=== PATIENT | female | born 1960 | race Caucasian/White ===

== ENCOUNTER 2020-09-17 10:13 | Outpatient (CLI) | payer MEDICARE, SELFPAY ==
--- NOTE | ~2020-09-17 | MM_ITS ---
EXAMINATION: MM screening [facility] BI w macie HISTORY: Screening TECHNIQUE: Craniocaudal and mediolateral oblique 3-D tomosynthesis images were obtained and synthetic 2-D images were generated. CAD analysis was submitted and interpreted. COMPARISON: 08/11/2016 BREAST PARENCHYMAL COMPOSITION: The breasts are heterogeneously dense, which may obscure small masses . FINDINGS: Benign-appearing bilateral breast calcifications are stable. The right breast is stable wit hout evidence for malignancy. There is a new focal asymmetry in the subareolar location of the left b reast on MLO view. IMPRESSION: 1. New left breast asymmetry. 2. Additional mammographic views and possible breast ultrasound are recommended. BI-RADS Category 0: Incomplete: Needs additional imaging evaluation. Reviewed, dictated and finalized at location A. GLE SHEARING MACHINE OPERATOR IMPRESSION: 1. New left breast asymmetry. 2. Additional mammographic views and possible breast ultrasound are recommended . BI-RADS Category 0: Incomplete: Needs additional imaging evaluation.
== END 2020-09-17 10:14 | disposition home or self-care (01) ==
LOC: ANHIMG 10:17
PROVIDERS: PCP Nurse Practitioner Adult Health; Visit Provider Nurse Practitioner Adult Health
DX: Z12.31 Encounter for screening mammogram for malignant neoplasm of breast (principal); R92.8 Other abnormal and inconclusive findings on diagnostic imaging of breast
CPT/HCPCS: 77063; 77067

== ENCOUNTER 2020-10-04 12:54 | Outpatient (CLI) | payer MEDICARE, SELFPAY ==
--- NOTE | ~2020-10-04 | MMUS_ITS ---
EXAMINATION: MM diagnostic mammo unilat LT, US breast LT limited HISTORY: Possible left breast mass on screening mammogram TECHNIQUE: Additional 3-D tomosynthesis images of the left breast were performed and synthetic 2-D im ages were generated. CAD analysis was submitted and interpreted. High resolution limited left breast ultrasound was performed. COMPARISON: 09/17/2020, 09/14/2019, 08/30/2018, 08/27/2017 FINDINGS: MAMMOGRAPHIC FINDINGS: No persistent mass is identified with spot compression of the left breast. There is no suspicious giuseppe cification or architectural distortion ULTRASOUND: There is no evidence of focal abnormal solid or cystic lesion in the vicinity of the mammographic fin ding in question. IMPRESSION: 1. No mammographic or sonographic evidence of malignancy. 2. Recommend routine screening mammography in one year. BI-RADS Category 1: Negative Reviewed, dictated and finalized at location A. IDER NETWORK MANAGER IMPRESSION: 1. No mammographic or sonographic evidence of malignancy. 2. Recommend routine screening mammography in one year. BI-RADS Category 1: Negative
== END 2020-10-04 12:55 | disposition home or self-care (01) ==
LOC: ANHIMG 12:59
PROVIDERS: PCP Nurse Practitioner Adult Health; Visit Provider Nurse Practitioner Adult Health
DX: R92.8 Other abnormal and inconclusive findings on diagnostic imaging of breast (principal)
CPT/HCPCS: 76642; 77065

== ENCOUNTER 2020-10-15 13:29 | Outpatient (CLI) | payer MEDICARE, SELFPAY ==
--- NOTE | 2020-10-15 | ECHO_ITS ---
Patient Info Name: Karyn Ulrich Age: 59 years : 1960 Gender: Female Ht: 62 in Wt: 151 lbs BSA: 1.75 m2 HR: 95 bpm BP: 130 / 86 mmHg Heart Rhythm: Sinus Rhythm Technical Quality: Good Exam Date: 10/15/2020 2:09 PM Exam Location: [facility] Patient Status: Outpatient Admit Date: 10/15/2020 Staff Ordering Physician: Gilberto, Alejandra RODRIGUEZ [employer] Service Team Member: Matty Gamble RDCS Attending Provider: GennaroAlejandra NP Exam Type: CA echo doppler color flow Study Info Indications I27.2 - Other secondary pulmonary hypertension Complete two-dimensional, color flow and Doppler transthoracic echocardiogram is performed. History/Risk Factors Pulmonary hypertension. Summary 1. Complete two-dimensional, color flow and Doppler transthoracic echocardiogram is performed. 2. Left ventricular systolic function is normal, estimated at 55-60%. 3. There is mild asymmetric septal increased left ventricular wall thickness. 4. The left ventricular diastolic function is grade I diastolic dysfunction. 5. There is no aortic valve stenosis. 6. There is trace tricuspid valve regurgitation. 7. Unable to estimate PA systolic pressure due to poor spectral resolution of tricuspid regurgitant jet velocity. 8. There is trace mitral valve regurgitation. Left Ventricle Left ventricular chamber dimension is normal. Left ventricular systolic function is normal, estimated at 55-60%. There is mild asymmetric septal increased left ventricular wall thickness. The left ventricular diastolic function is grade I diastolic dysfunction. Right Ventricle Right ventricular chamber dimension is normal. Right ventricular systolic function is normal. Left Atria Left atrial chamber dimension is not well visualized. Right Atria Right atrial chamber dimension is not well visualized. Aortic Valve The aortic valve is not well visualized. There is no aortic valve stenosis. There is no aortic valve regurgitation. Pulmonic Valve The pulmonic valve is not well visualized. There is mild pulmonic regurgitation. Mitral Valve The mitral valve has thickened leaflets. There is trace mitral valve regurgitation. The mitral valve annulus is mildly calcified. Tricuspid Valve The tricuspid valve leaflets are not well visualized. There is trace tricuspid valve regurgitation. Unable to estimate PA systolic pressure due to poor spectral resolution of tricuspid regurgitant jet velocity. Pericardium/Pleural The pericardium appears epicardial fat pad. There is no pericardial effusion. Inferior Vena Cava Normal inferior vena cava with no collapse upon inspiration consistent with elevated right atrial pressure, 10 mmHg. Aorta The aortic root size at the sinus of Valsalva is normal. There is mild aortic atherosclerosis. Left Ventricular Outflow Tract Name Value Normal LVOT 2D LVOT Diameter 2.0 cm LVOT Doppler LVOT Peak Gradient 2 mmHg LVOT Mean Gradient 1 mmHg LVOT VTI 13 cm LVOT VTI/AV VTI Ratio 0.8
== END 2020-10-15 13:30 | disposition home or self-care (01) ==
LOC: ANHCARD 13:30
PROVIDERS: PCP Nurse Practitioner Adult Health; Visit Provider Nurse Practitioner Adult Health
DX: I27.20 Pulmonary hypertension, unspecified (principal)
CPT/HCPCS: 93306

== ENCOUNTER 2022-02-27 14:55 | Outpatient (CLI) | payer MEDICARE, SELFPAY ==
--- NOTE | ~2022-02-27 | MM_ITS ---
EXAMINATION: MM screening mikki BI w macie HISTORY: Screening TECHNIQUE: Craniocaudal and mediolateral oblique 3-D tomosynthesis images were obtained and synthetic 2-D images were generated. CAD analysis was submitted and interpreted. COMPARISON: No prior mammogram is available for comparison at this institution. BREAST PARENCHYMAL COMPOSITION: The breasts are extremely dense, which lowers the sensitivity of mamm ography FINDINGS: There is no evidence of suspicious mass, calcification, or architectural distortion to sugg est malignancy in either breast. There has been no suspicious interval change. IMPRESSION: 1. No mammographic evidence of malignancy. 2. Recommend routine screening mammography in one year. BI-RADS Category 1: Negative Reviewed, dictated and finalized at location A.
== END 2022-02-27 14:56 | disposition home or self-care (01) ==
LOC: ANHIMG 14:57
PROVIDERS: PCP Nurse Practitioner Adult Health; Visit Provider Nurse Practitioner Adult Health
DX: Z12.31 Encounter for screening mammogram for malignant neoplasm of breast (principal)
CPT/HCPCS: 77063; 77067

== ENCOUNTER 2023-03-05 14:48 | Outpatient (CLI) | payer MEDICARE, SELFPAY ==
--- NOTE | ~2023-03-05 | MM_ITS ---
EXAMINATION: MM screening [facility] BI w macie HISTORY: Screening mammogram TECHNIQUE: Craniocaudal and mediolateral oblique 3-D tomosynthesis images were obtained and synthetic 2-D images were generated. CAD analysis was submitted and interpreted. COMPARISON: 02/27/2022, 10/04/2020, 09/17/2020, 09/27/2019 BREAST PARENCHYMAL COMPOSITION: The breasts are extremely dense, which lowers the sensitivity of mamm ography. FINDINGS: No suspicious mass, calcification, or architectural distortion are identified in either thor ast to suggest malignancy. There has been no suspicious interval change. IMPRESSION: 1. No mammographic evidence of malignancy. 2. Recommend routine screening mammography in one year. BI-RADS Category 1: Negative Reviewed, dictated and finalized at location A.
== END 2023-03-05 14:49 | disposition home or self-care (01) ==
LOC: ANHIMG 14:49
PROVIDERS: PCP Nurse Practitioner Adult Health; Visit Provider Family Medicine
DX: Z12.31 Encounter for screening mammogram for malignant neoplasm of breast (principal)
CPT/HCPCS: 77063; 77067

== ENCOUNTER 2024-04-04 07:31 | Outpatient (CLI) | payer MEDICARE, SELFPAY ==
--- NOTE | ~2024-04-04 | MM_ITS ---
EXAMINATION: MM screening mikki BI w macie HISTORY: Screening mammogram TECHNIQUE: Craniocaudal and mediolateral oblique 3-D tomosynthesis images were obtained and synthetic 2-D images were generated. CAD analysis was submitted and interpreted. COMPARISON: 03/05/2023, 02/27/2022 BREAST PARENCHYMAL COMPOSITION:Dense: The breasts are extremely dense, which lowers the sensitivity o f mammography. FINDINGS: Bilateral benign calcifications are present. No suspicious mass, calcification, or architec tural distortion are identified in either breast to suggest malignancy. There has been no suspicious interval change. IMPRESSION: No mammographic evidence of malignancy. Recommend routine screening mammography in one year. BI-RADS Category 2: Benign finding(s). Reviewed, dictated and finalized at location .
== END 2024-04-04 07:32 | disposition home or self-care (01) ==
LOC: ANHIMG 07:34
PROVIDERS: PCP Family Medicine; Visit Provider Family Medicine
DX: Z12.31 Encounter for screening mammogram for malignant neoplasm of breast (principal)
CPT/HCPCS: 77063; 77067

== ENCOUNTER 2024-12-23 14:15 | Outpatient (CLI) | payer MEDICARE, SELFPAY ==
--- NOTE | ~2024-12-23 | CT_ITS ---
EXAMINATION:CT lung screening DATE: 12/23/2024 14:38 INDICATION: Nicotine dependence, cigarettes, uncomplicated. 42 pack year history. TECHNIQUE: Computed tomography (CT) of the chest was performed without intravenous contrast. Automate d exposure control and iterative reconstruction technique were employed. The dose-length product (DLP ) was 76.55 mGy-cm. COMPARISON: None. FINDINGS: There is mild emphysema. There is widespread peripheral septal thickening in the lungs. The re is a 3 mm nodule in right upper lobe. No pleural effusion. The heart size is normal. There are cor onary artery calcifications. No pericardial effusion. There are gallstones in the gallbladder, which is normal in size. There is mild thoracic spondylosis. IMPRESSION: 1. Lung-RADS category 2: Benign appearance or behavior. Continue annual screening with noncontrast lo w-dose chest CT in 12 months. Reviewed, dictated and finalized at location A. STICKER IMPRESSION: 1. Lung-RADS category 2: Benign appearance or behavior. Continue annual screeni ng with noncontrast low-dose chest CT in 12 months.
--- OUTSIDE RECORDS SUMMARY | 2024-12-23 14:23 | XMS_ITS | Data Portability ---
Author Organization [place] [facility] [employer], Main Office Address [address] [place] [address] Care Team Providers Care Bus Inspector Name Role Phone EZEQUIEL RICHMOND Primary Care Provider Assessment Encounter Date Assessment Date Assessment LastModified by Organization Details LastModified Time 12/14/2024 12/14/2024 64 yo F with - WELL ADULT VISIT - PRE-DM - HLD - DEPRESSION - ANXIETY - OSTEOPENIA - SMOKER HbA1c: 5.9(11/02/23) D/w pt about her findings, recent labs & imagines and further plan of care. Will do routine labs. All meds verified with pt. Meds as directed. Diet and exercise explained. Fall risk precautions explained. Encouraged pt to cut down and quit smoking. Educated pt about alarming symptoms to monitor at home. Cont f/u with Ophtho as per schedule. Offered to refer to counsellor; but pt declined. HM: WWE - Long time ago. Normal in the past. Pt declined. Mammo - 04/04/24, normal. Ordered. DEXA - 12/12/22, osteopenia ++. Colonoscopy - 03/06, h/o polyps ++. Cont f/u with GI as per schedule. Flu - 09/08. Tdap - 06/16/22. Pneumo - 2019, 12/14/24. Shingrix - Pt got it. F/u in 2-3 weeks. Annual labs in 12/11. [email or web address] Not available 12/14/2024 15:49:45 Plan of Treatment Reminders Order Date Submit Date Provider Last Modified By Organization Details Last Modified Time Details Appointments Follow Up 15 2024 01:00P M Ezequiel Richmond MD Not available Not available Not available Lab HbA1c (hemoglob in A1c), blood [address] [facility], [address] [place], [address], 08/04/2023 08:10:30 BMP, serum or plasma [address] [facility], [address] [place], [address], 08/04/2023 08:10:30 TSH, serum, reflex free T4 [address] [facility], [address] [place], [address], 08/04/2023 08:10:30 lipid panel, serum [address] [facility], [address] [place], [address], 08/04/2023 08:10:30 hepatic function panel, serum [address] [facility], [address] [place], [address], 08/04/2023 08:10:30 HbA1c (hemoglob in A1c), blood [address] [employer] [facility], [address], [place], [address], 12/21/2024 04:34:09 CMP, serum or plasma 2024 025 [employer] [facility], [address], [place], [address], 12/21/2024 04:34:09 urinalysi s complete, reflex culture [address] [facility], [address], [place], [address], 12/21/2024 04:34:10 CBC w/ auto diff 2024 025 [employer] [facility], [address], [place], [address], 12/21/2024 04:34:10 lipid panel, serum 2024 025 [employer] [facility], [address], [place], [address], 12/21/2024 04:34:10 TSH, serum or plasma 2024 025 [employer] [facility], [address], [place], [address], 12/21/2024 04:34:11 vitamin D, 25-hydrox y, total, serum 2024 025 [employer] [facility], [address], [place], [address], 12/21/2024 04:34:11 Referral None recorded. Procedures None recorded. Surgeries None recorded. Imaging MAMMO, screening , bilateral - *Please call pt to schedule* [email or web address] [facility], [address], [address] [address], [place], [address], 04/04/2024 14:49:07 MAMMO, screening , bilateral [address], [address], [place], [address], 12/14/2024 15:39:54 LDCT, chest, for lung cancer screening - Please call patient to schedule. 2024 025 [facility], [address], [place], [address], 12/14/2024 17:00:56 Medication Orders metformin ER 500 mg tablet,ex tended release 24 hr 2023 024 [facility], [address] [place], [place], [id number], 12/28/2023 15:05:12 citalopra m 40 mg tablet 2023 024 [facility] #74860, [address] [place], [place], [id number], 12/28/2023 15:04:51 atorvasta tin 10 mg tablet 2023 024 [facility] #46133, [address] [place], [place], [id number], 12/28/2023 15:05:05 Calcium 600 + D(3) 600 mg-10 mcg (400 unit) tablet 2023 [facility] #22304, [address] [place], [place], [id number], 12/28/2023 15:07:49 bupropion HCl XL 150 mg 24 hr tablet, extended release 2023 [facility] #37209, [address] [place], [place], [id number], 12/28/2023 15:05:05 metformin ER 500 mg tablet,ex tended release 24 hr 2023 024 [facility] #56633, [address] [place], [place], [id number], 05/11/2024 14:16:55 citalopra m 40 mg tablet 2023 024 [facility] #81826, [address] [place], [place], [id number], 05/11/2024 14:16:53 atorvasta tin 10 mg tablet 2023 024 [facility] #[id number] [place], [id number], 05/11/2024 14:17:04 Calcium 600 + D(3) 600 mg-10 mcg (400 unit) tablet 2023 [facility] #52463, [address] [place], [place], [id number], 05/11/2024 14:16:53 nicotine 21 mg/24 hr daily transderm al patch 2023 [facility] #77249, [address] [place], [place], [id number], 05/11/2024 14:16:54 bupropion HCl XL 150 mg 24 hr tablet, extended release 2023 [facility] #35755, [address] [place], [place], [id number], 05/11/2024 14:16:54 metformin ER 500 mg tablet,ex tended release 24 hr 2023 [facility] #40694, [address] [place], [place], [id number], 08/30/2024 11:37:43 citalopra m 40 mg tablet 2023 [facility] #11534, [address] [place], [place], [id number], 08/30/2024 11:37:39 atorvasta tin 10 mg tablet 2023 [facility] #59708, [address] [place], [place], [id number], 08/30/2024 11:37:42 Calcium 600 + D(3) 600 mg-10 mcg (400 unit) tablet 2023 [facility] #49381, [address] [place], [place], [id number], 08/30/2024 11:37:44 nicotine 21 mg/24 hr daily transderm al patch 2023 [facility] #71240, [address] [place], [place], [id number], 08/30/2024 11:37:44 varenicli ne tartrate 0.5 mg tablet 2023 024 [facility] #54892, [address] [place], [place], [id number], 08/30/2024 11:37:45 bupropion HCl XL 150 mg 24 hr tablet, extended release 2023 024 [facility] #74778, [address] [place], [place], [id number], 08/30/2024 11:37:45 bupropion HCl XL 150 mg 24 hr tablet, extended release 2024 025 [facility] #80764, [address] [place], [place], [id number], 12/14/2024 15:27:53 nicotine 21 mg/24 hr daily transderm al patch 2024 025 [facility] #[id number] [place], [place], [id number], 12/14/2024 15:47:50 Patient TargetsNo targets recorded. Patient Instructions Encounter Date Encounter Id Patient Instructions Last Modified By Organization Details Last Modified Time 06/30/2023 [id number] Fu in 6 mo for anxiety/depressio n, lipid, dm, smoker. [email or web address] Not available 06/30/2023 10:31:58 Reason for Referral None Reported. Results Created Date Observation Date Name Description Value Unit Range Abnormal Flag Note LastModifiedBy Organization Detail LastModifiedTime 06/26/20 23 06/26/2023 BASIC METAB OLIC PANEL sodium 135 mmol/ L 137-14 5 low Not Available [facility] (Lab) [address] [place], [address], 06/26/2023 12:11:31 06/26/20 23 06/26/2023 BASIC METAB OLIC PANEL potassium 4.5 mmol/ L 3.5-5. 1 Not Available [facility] (Lab) [address] [place], [address], 06/26/2023 12:11:31 06/26/20 23 06/26/2023 BASIC METAB OLIC PANEL chloride 100 mmol/ L 98-107 Not Available [facility] (Lab) [address], [address], 06/26/2023 12:11:31 06/26/20 23 06/26/2023 BASIC METAB OLIC PANEL carbon dioxide 31 mmol/ L 22-30 high Not Available [facility] (Lab) [address] [place], [address], 06/26/2023 12:11:31 06/26/20 23 06/26/2023 BASIC METAB OLIC PANEL anion gap 8.5 mmol/ L 14-22 low Not Available [facility] (Lab) [address] [place], [address], 06/26/2023 12:11:31 06/26/20 23 06/26/2023 BASIC METAB OLIC PANEL glucose 100 mg/dL 70-99 high Not Available [facility] (Lab) [address] [place], [address], 06/26/2023 12:11:31 06/26/20 23 06/26/2023 BASIC METAB OLIC PANEL BUN 13 mg/dL 8-19 Not Available [facility] (Lab) [address] [place], [address], 06/26/2023 12:11:31 06/26/20 23 06/26/2023 BASIC METAB OLIC PANEL creatinine 0.69 mg/dL 0.66-1 .25 Not Available [facility] (Lab) [address] [place], [address], 06/26/2023 12:11:31 06/26/2006/26/2023 BASIC METAB OLIC PANEL GFR >60 Refer ence Range : Ewing ge GFR Healt hy Adult : >60 mL/mi n/1.7 3 m2 Chron ic Kidne y Disea se: 15-60 mL/mi n/1.7 3 m2 Kidne y Failu re: <15/m L/min /1.73 m2 www.n iddk. nih.g ov The MDRD study equat ion has not been valid ated in child nena <18 years of age; pregn ant women ; the elder ly >85 years of age; or in some racia l or ethni c subgr oups, such as Hispa nics. Outsi de the valid ated raymon eters , estim ated GFR is less accur ate, requi ring clini giuseppe judgm ent on a case- by-ca se basis . Clini giuseppe inter preta tion for other races and ages must be made by the clini nava. The MDRD study equat ion has not been valid ated for the evalu ation of serum creat inine relat ed to nutri jada l statu s or medic ation usage . For perso ns <18 years of age, a pedia tric GFR calcu lator is avail able on the [facility] websi te: https :[email or web address] [email or web address] wilhelm/pr marthaess ional s/kdo qi/gf r_cal culat or Not Available [facility] (Lab) [address] [place], [address], 06/26/2023 12:11:31 06/26/2006/26/2023 BASIC METAB OLIC PANEL calcium 8.8 mg/dL 8.4-10 .2 Not Available [facility] (Lab) [address], [address], 06/26/2023 12:11:31 06/26/20 23 06/26/2023 LIPID PANEL cholesterol 150 mg/dL 140-19 9 NIH BERTHA NSUS RECOM MENDA TION FOR KOBE STERO L: ADULT CHILD LOW RISK: <200 <170 BORDE RLINE : <200- 239 ----- HIGH RISK: >240 >200 Not Available [facility] (Lab) [address] [place], [address], 06/26/2023 12:11:34 06/26/20 23 06/26/2023 LIPID PANEL triglyceride s 49 mg/dL 0-150 NIH BERTHA NSUS REPOR T RECOM MENDA TION FOR TRIGL YCERI SEVERIANO: ADULT CHILD LOW RISK: <150 ----- BODER LINE: 150-1 99 ----- HIGH RISK: >200 ----- Not Available [facility] (Lab) [address] [place], [address], 06/26/2023 12:11:34 06/26/20 23 06/26/2023 LIPID PANEL HDL cholesterol 93 mg/dL 40- Not Available [facility] (Lab) [address] [place], [address], 06/26/2023 12:11:34 06/26/20 23 06/26/2023 LIPID PANEL LDL cholesterol, calculated 47 mg/dL 0-130 NIH BERTHA NSUS REPOR T RECOM MENDA TIONS FOR LDL: ADULT CHILD LOW RISK <130 <110 (OPTI MAL LDL) <100 ----- BORDE RLINE : 130-1 59 ----- HIGH RISK: >160 >130 A TRIGL YCERI DE RESUL T >400 INVAL IDATE S THE CALCU LATIO N FOR LDL FRACT IONAT ION - THE LDL RESUL T WILL NOT BE REPOR EUGENE. Not Available [facility] (Lab) [address] [place], [address], 06/26/2023 12:11:34 06/26/20 23 06/26/2023 HEPAT IC/LI CEE PANEL alkaline phosphatase 68 U/L 38-126 Not Available [facility] (Lab) [address] [facility] [place], [address], 06/26/2023 12:11:37 06/26/20 23 06/26/2023 HEPAT IC/LI CEE PANEL alanine aminotransfe rase 15 U/L 0-35 Not Available [facility] (Lab) [address] [place], [address], 06/26/2023 12:11:37 06/26/20 23 06/26/2023 HEPAT IC/LI CEE PANEL aspartate aminotransfe rase 17 U/L 15-37 Not Available [facility] (Lab) [address] [facility], [address], 06/26/2023 12:11:37 06/26/20 23 06/26/2023 HEPAT IC/LI CEE PANEL bilirubin, total 0.30 mg/dL 0.20-1 .30 Not Available [facility] (Lab) [address] [place], [address], 06/26/2023 12:11:37 06/26/20 23 06/26/2023 HEPAT IC/LI CEE PANEL bilirubin, conjugated (direct) 0.00 mg/dL 0.00-0 .30 Not Available [facility] (Lab) [address] [place], [address], 06/26/2023 12:11:37 06/26/20 23 06/26/2023 HEPAT IC/LI CEE PANEL biliurubin,u ncong. (indirect) 0.30 mg/dL 0.00-1 .1 Not Available [facility] (Lab) [address] [place], [address], 06/26/2023 12:11:37 06/26/20 23 06/26/2023 HEPAT IC/LI CEE PANEL total protein 6.7 g/dL 6.3-8. 2 Not Available [facility] (Lab) [address] [place], [address], 06/26/2023 12:11:37 06/26/20 23 06/26/2023 HEPAT IC/LI CEE PANEL albumin 3.9 g/dL 3.0-4. 4 Not Available [facility] (Lab) [address] [place], [address], 06/26/2023 12:11:37 06/26/20 23 06/26/2023 HEPAT IC/LI CEE PANEL globulin 2.8 g/dL 2.6-4. 2 Not Available [facility] (Lab) [address] [place], [address], 06/26/2023 12:11:37 06/26/20 23 06/26/2023 HEPAT IC/LI CEE PANEL A/G ratio 1.4 ratio 1.0-2. 0 Not Available [facility] (Lab) [address] [place], [address], 06/26/2023 12:11:37 06/26/20 23 06/26/2023 HEMOG LOBIN A1C HA1C 6.2 % 4.0-6. 0 high Diabe elaine Scree luis Crite sharon: <5.7% Consi stent with absen ce of diabe elaine 5.7-6 .4% Consi stent with incre ased risk for diabe elaine (pred iabet es) >OR=6 .5% Consi stent with diabe elaine REFER ENCE: Diabe elaine Care 2016, 39(Giang ppl.1 ):s13 -s22 Not Available [facility] (Lab) [address] [place], [address], 06/26/2023 16:15:26 11/02/20 23 11/02/2023 LIPID PANEL cholesterol 167 mg/dL 140-19 9 NIH BERTHA NSUS RECOM MENDA TION FOR KOBE STERO L: ADULT CHILD LOW RISK: <200 <170 BORDE RLINE : <200- 239 ----- HIGH RISK: >240 >200 Not Available [facility] (Lab) [address] [place], [address], 11/02/2023 11:51:50 11/02/20 23 11/02/2023 LIPID PANEL triglyceride s 102 mg/dL 0-150 NIH BERTHA NSUS REPOR T RECOM MENDA TION FOR TRIGL YCERI SEVERIANO: ADULT CHILD LOW RISK: <150 ----- BODER LINE: 150-1 99 ----- HIGH RISK: >200 ----- Not Available [facility] (Lab) [address] [place], [address], 11/02/2023 11:51:50 11/02/20 23 11/02/2023 LIPID PANEL HDL cholesterol 84 mg/dL 40- Not Available [facility] (Lab) [address] [place], [address], 11/02/2023 11:51:50 11/02/20 23 11/02/2023 LIPID PANEL LDL cholesterol, calculated 63 mg/dL 0-130 NIH BERTHA NSUS REPOR T RECOM MENDA TIONS FOR LDL: ADULT CHILD LOW RISK <130 <110 (OPTI MAL LDL) <100 ----- BORDE RLINE : 130-1 59 ----- HIGH RISK: >160 >130 A TRIGL YCERI DE RESUL T >400 INVAL IDATE S THE CALCU LATIO N FOR LDL FRACT IONAT ION - THE LDL RESUL T WILL NOT BE REPOR EUGENE. Not Available [facility] (Lab) [address] [place], [address], 11/02/2023 11:51:50 11/02/20 23 11/02/2023 HEPAT IC/LI CEE PANEL alkaline phosphatase 78 U/L 38-126 Not Available [facility] (Lab) [address] [place], [address], 11/02/2023 11:51:56 11/02/20 23 11/02/2023 HEPAT IC/LI CEE PANEL alanine aminotransfe rase 14 U/L 0-35 Not Available [facility] (Lab) [address] [place], [address], 11/02/2023 11:51:56 11/02/20 23 11/02/2023 HEPAT IC/LI CEE PANEL aspartate aminotransfe rase 17 U/L 15-37 Not Available [facility] (Lab) [address] [place], [address], 11/02/2023 11:51:56 11/02/20 23 11/02/2023 HEPAT IC/LI CEE PANEL bilirubin, total 0.40 mg/dL 0.20-1 .30 Not Available [facility] (Lab) [address] [place], [address], 11/02/2023 11:51:56 11/02/20 23 11/02/2023 HEPAT IC/LI CEE PANEL bilirubin, conjugated (direct) 0.00 mg/dL 0.00-0 .30 Not Available [facility] (Lab) [address] [place], [address], 11/02/2023 11:51:56 11/02/20 23 11/02/2023 HEPAT IC/LI CEE PANEL biliurubin,u ncong. (indirect) 0.20 mg/dL 0.00-1 .1 Not Available [facility] (Lab) [address] [place], [address], 11/02/2023 11:51:56 11/02/20 23 11/02/2023 HEPAT IC/LI CEE PANEL total protein 7.3 g/dL 6.3-8. 2 Not Available [facility] (Lab) [address] [place], [address], 11/02/2023 11:51:56 11/02/20 23 11/02/2023 HEPAT IC/LI CEE PANEL albumin 4.0 g/dL 3.0-4. 4 Not Available [facility] (Lab) [address] [place], [address], 11/02/2023 11:51:56 11/02/20 23 11/02/2023 HEPAT IC/LI CEE PANEL globulin 3.3 g/dL 2.6-4. 2 Not Available [facility] (Lab) [address] [place], [address], 11/02/2023 11:51:56 11/02/20 23 11/02/2023 HEPAT IC/LI CEE PANEL A/G ratio 1.2 ratio 1.0-2. 0 Not Available [facility] (Lab) [address] [place], [address], 11/02/2023 11:51:56 11/02/20 23 11/02/2023 BASIC METAB OLIC PANEL sodium 136 mmol/ L 137-14 5 low Not Available [facility] (Lab) [address] [place], [address], 11/02/2023 11:52:02 11/02/20 23 11/02/2023 BASIC METAB OLIC PANEL potassium 4.3 mmol/ L 3.5-5. 1 Not Available [facility] (Lab) [address] [place], [address], 11/02/2023 11:52:02 11/02/20 23 11/02/2023 BASIC METAB OLIC PANEL chloride 101 mmol/ L 98-107 Not Available [facility] (Lab) [address] [place], [address], 11/02/2023 11:52:02 11/02/20 23 11/02/2023 BASIC METAB OLIC PANEL carbon dioxide 28 mmol/ L 22-30 Not Available [facility] (Lab) [address] [place], [address], 11/02/2023 11:52:02 11/02/20 23 11/02/2023 BASIC METAB OLIC PANEL anion gap 11.3 mmol/ L 14-22 low Not Available [facility] (Lab) [address] [place], [address], 11/02/2023 11:52:02 11/02/20 23 11/02/2023 BASIC METAB OLIC PANEL glucose 114 mg/dL 70-99 high Not Available [facility] (Lab) [address] [place], [address], 11/02/2023 11:52:02 11/02/20 23 11/02/2023 BASIC METAB OLIC PANEL BUN 11 mg/dL 8-19 Not Available [facility] (Lab) [address] [place], [address], 11/02/2023 11:52:02 11/02/20 23 11/02/2023 BASIC METAB OLIC PANEL creatinine 0.63 mg/dL 0.66-1 .25 low Not Available [facility] (Lab) [address] [place], [address], 11/02/2023 11:52:02 11/02/20 23 11/02/2023 BASIC METAB OLIC PANEL GFR >60 Refer ence Range : Ewing ge GFR Healt hy Adult : >60 mL/mi n/1.7 3 m2 Chron ic Kidne y Disea se: 15-60 mL/mi n/1.7 3 m2 Kidne y Failu re: <15/m L/min /1.73 m2 www.n iddk. nih.g ov The MDRD study equat ion has not been valid ated in child nena <18 years of age; pregn ant women ; the elder ly >85 years of age; or in some racia l or ethni c subgr oups, such as Hispa nics. Outsi de the valid ated raymon eters , estim ated GFR is less accur ate, requi ring clini giuseppe judgm ent on a case- by-ca se basis . Clini giuseppe inter preta tion for other races and ages must be made by the clini nava. The MDRD study equat ion has not been valid ated for the evalu ation of serum creat inine relat ed to nutri jada l statu s or medic ation usage . For perso ns <18 years of age, a pedia tric GFR calcu lator is avail able on the [facility] websi te: https :[email or web address] [email or web address] wilhelm/payal ofess ional s/kdo qi/gf r_cal culat or Not Available [facility] (Lab) [address] [place], [address], 11/02/2023 11:52:02 11/02/20 23 11/02/2023 BASIC METAB OLIC PANEL calcium 8.9 mg/dL 8.4-10 .2 Not Available [facility] (Lab) [address] [place], [address], 11/02/2023 11:52:02 11/02/20 23 11/02/2023 TSH W/REF RENU FT4 TSH with reflex free T4 2.560 uIU/m L 0.465- 4.680 Not Available [facility] (Lab) [address] [place], [address], 11/02/2023 12:01:22 11/02/20 23 11/02/2023 HEMOG LOBIN A1C HA1C 5.9 % 4.0-6. 0 Diabe elaine Emersone luis Crite sharon: <5.7% Consi stent with absen ce of diabe elaine 5.7-6 .4% Consi stent with incre ased risk for diabe elaine (pred iabet es) >OR=6 .5% Consi stent with diabe elaine REFER ENCE: Diabe elaine Care 2016, 39(Giang ppl.1 ):s13 -s22 Not Available [facility] (Lab) [address] [place], [address], 11/02/2023 20:38:32 04/04/20 24 04/04/2024 MAMMO , reynaldo smith, bilat eral No observ ation record ed. [email or web address] [place] [id number], [place], [address], 05/11/2024 14:10:29 04/04/20 24 04/04/2024 MAMMO , scree luis, bilat eral No observ ation record ed. [email or web address] [facility] [address], [place], [address], 05/11/2024 14:10:29 Result Notes None recorded. Problems Name Problem SNOMED Code Status Onset Date Resolution Date Notes Provider Name and Address Organization Details Recorded Time Alcohol abuse 86179424 Active Not Available [facility] 3 06:14:16 Depressiv e disorder 93446226 Active Not Available [facility] 3 06:14:16 Hyperlipi demia 79972517 Active Not Available [facility] 3 06:14:16 Essential hypertens ion 06051679 Active Not Available [facility] 3 06:14:16 Pulmonary hypertens ion 28186678 Active 2019 Not Available [facility] 3 06:14:16 Sleep apnea 00931174 Completed Not Available [facility] 3 06:14:16 History of traumatic brain injury 81047128917 100 Active 2021 Not Available [facility] 3 06:14:16 Anxiety disorder 182630578 Active 2023 Ezequiel Richmond MD [address], [place], [address] , [employer] [facility] [employer] 4 15:01:37 Prediabet es 064014316 Active 2023 Ezequiel Richmond MD [address], [place], [address] , [employer] [facility] [employer] [facility] 4 15:04:08 Osteopeni a 096570801 Active 2023 Ezequiel Richmond MD [address], [place], [address] , [employer] [facility] [employer] [facility] 4 15:07:26 Cigarette smoker 92722949 Active 2023 Ezequiel Richmond MD [address], [place], [address] , [facility] 15:14:51 Problem Notes None recorded. Procedures Surgical History Date Name Laterality Status Provider Name and Address Organization Details Recorded Time 12/14/19 25 Smoking Cessation completed Ezequiel Richmond MD [address], [place], [address], [facility] 12/14/2024 14:58:03 08/30/20 24 Smoking Cessation completed Ezequiel Richmond MD [address], [place], [address], [facility] 08/30/2024 11:40:30 05/11/20 24 Smoking Cessation completed Ezequiel Richmond MD [address], [place], [address], [facility] [employer] 05/11/2024 14:16:10 12/28/19 24 Smoking Cessation completed Ezequiel Richmond MD [address], [place], [address], [facility] [place] [facility] [employer] [facility] 12/28/2023 15:12:21 03/05/20 23 Most Recent Mammogram completed Lavinia Roass RN [facility] [employer] [facility] 06/30/2023 10:12:47 12/12/19 23 Most Recent Bone Density completed Not Available [facility] 01/14/2023 06:08:17 11/16/19 16 Date of Last Colonoscopy completed Not Available [facility] 01/14/2023 06:08:17 Brain Surgery completed Not Available [facility] 01/14/2023 06:08:21 Colonoscopy completed Not Available [facility] 01/14/2023 06:08:21 Imaging Results Imaging Date Name Status LastModified by [facility] Details LastModified Time 04/04/2024 MAMMO, screening, bilateral completed [address] [place] [address], [address], 05/11/2024 14:10:29 04/04/2024 MAMMO, screening, bilateral completed [address], [address], 05/11/2024 14:10:29 Procedure Notes None recorded. Medical Equipment None Reported. Allergies No known drug allergies Medications Name Sig Start Date Stop Date Status Note LastModified by Organization Details LastModified Time metformin 500 mg tablet TAKE 1 TABLET BY MOUTH TWICE DAILY active Not Available Not Available No t Available bupropion HCl SR 150 mg tablet,12 hr sustained- release Take 1 tablet twice a day by oral route for 90 days. active Not Available Not Available No t Available citalopram 40 mg tablet TAKE 1 TABLET BY MOUTH EVERY DAY active Not Available Not Available No t Available atorvastat in 10 mg tablet TAKE 1 TABLET BY MOUTH EVERY NIGHT active Not Available Not Available No t Available azithromyc in 250 mg tablet TAKE 2 TABLETS (500 MG) BY ORAL ROUTE ONCE DAILY FOR 1 DAY THEN 1 TABLET (250 MG) BY ORAL ROUTE ONCE DAILY FOR 4 DAYS active Not Available Not Available No t Available ofloxacin 0.3 % eye drops INSTILL 1 DROP INTO AFFECTED EYE(S) BY OPHTHALM IC ROUTE 4 TIMES PER DAY FOR 5 DAYS active Not Available Not Available No t Available amoxicilli n 500 mg tablet TAKE 1 TABLET BY MOUTH THREE TIMES DAILY UNTIL GONE 08/30 completed Not Available Not Available Not Available alprazolam 0.5 mg tablet TAKE 1 TABLET BY MOUTH TWICE DAILY NEEDED 06/30 completed Not Available Not Available Not Available VitrinepixTouch Ultra Test strips USE TO TEST BLOOD SUGAR ONCE DAILY 12/28 completed Not Available Not Available Not Available polymyxin B sulfate 10,000 unit-trime thoprim 1 mg/mL eye drops INSTILL 2 DROPS IN RIGHT EYE QID FOR 7 DAYS 12/20 completed Not Available Not Available Not Available nicotine 21 mg/24 hr daily transderma l patch Apply 1 patch every day by transder mal route as directed for 30 days. 2024 active Not Available Not Available Not Avai lable methylpred nisolone 4 mg tablets in a dose pack FOLLOW PACKAGE DIRECTIO NS 05/11 completed Not Available Not Available Not Available metformin ER 500 mg tablet,ext ended release 24 hr TAKE 1 TABLET BY MOUTH TWICE DAILY DIRECTED active Not Available Not Available No t Available bupropion HCl SR 200 mg tablet,12 hr sustained- release TAKE 1 TABLET BY MOUTH TWICE DAILY 12/28 completed Not Available Not Available Not Available bupropion HCl XL 150 mg 24 hr tablet, extended release Take 1 tablet every day by oral route in the evening for 90 days. 2024 active Not Available Not Available Not Avai janile OneTouch Ultra2 Meter kit FPD 12/28 completed Not Available Not Available Not Available vareniclin e tartrate 0.5 mg tablet TAKE 1 TABLET BY MOUTH TWICE DAILY DIRECTED active Not Available Not Available No t Available calcium 600 mg (as carbonate) -vitamin D3 10 mcg (400 unit) tablet TAKE 1 TABLET BY MOUTH TWICE DAILY active Not Available Not Available No t Available Chantix Starting Month Box 0.5 mg (11)-1 mg (42) tablets in dose pack Use as directed active not taking yet Not Available Not Available Not Available OneTouch Delica Lancets 30 gauge U TO TEST BLOOD SUGAR TID UTD 01/08 completed Not Available Not Available Not Available Fluvirin 3440-6477 45 mcg (15 mcg x 3)/0.5 mL intramuscu lar suspension active Not Available Not Available N ot Available Fluvirin 8840-8734 45 mcg (15 mcg x 3)/0.5 mL intramuscu lar suspension active Not Available Not Available N ot Available Fluvirin 2349-0399 45 mcg (15 mcg x 3)/0.5 mL intramuscu lar suspension active Not Available Not Available N ot Available Fluvirin 4119-6073 45 mcg (15 mcg x 3)/0.5 mL intramuscu lar suspension ADM 0.5ML IM UTD active Not Available Not Available No t Available Fluvirin 6585-9921 45 mcg (15 mcg x 3)/0.5 mL intramuscu lar suspension active Not Available Not Available N ot Available OneTouch Ultra Blue Test Strip USE TO TEST ONCE DAILY 12/28 completed Not Available Not Available Not Available Fluzone Quad 2017-(PF ) 60 mcg(15 mcgx4)/0.5 mL intramuscu lar syringe ADM 0.5ML IM UTD 12/22 completed Not Available Not Available Not Available OneTouch Ultra2 Meter 12/28 completed Not Available Not Available Not Available OneTouch Delica Plus Lancet 33 gauge USE TO TEST BLOOD SUGAR ONCE DAILY 12/28 completed Not Available Not Available Not Available Afluria Qd 2018- (36 mos up)(PF)60 mcg (15 mcg x4)/0.5 mL IM syringe active Not Available Not Available N ot Available Fluzone Quad (PF) 60 mcg (15 mcg x 4)/0.5 mL IM syringe 01/08 completed Not Available Not Available Not Available Vitals Date Recorded Body height Body mass index (BMI) Body weight Body temperature Heart rate Respiratory rate Oxygen saturation Oxygen saturation in Arterial blood by Pulse oximetry Pain severity - 0-10 verbal numeric rating [Score] - Reported Systolic blood pressure Diastolic blood pressure Provider Name and Address Organization Details Last Updated DateTime 3 157.48 cm 21.1 kg/m2 49905.2 7 g 96.1 [degF] 84 /min 20 /min 95 % 95 % 0 128 mm[Hg] 58 mm[Hg] Lavinia Rosas RN [facility] [employer] [facility] 3 10:11:00 Date Recorded Body height Body mass index (BMI) Body weight Body temperature Heart rate Respiratory rate Oxygen saturation Oxygen saturation in Arterial blood by Pulse oximetry Systolic blood pressure Diastolic blood pressure Provider Name and Address Organization Details Last Updated DateTime 4 157.48 cm 23.4 kg/m2 84842.1 7 g 98.1 [degF] 86 /min 16 /min 96 % 96 % 128 mm[Hg] 58 mm[Hg] Zia Ruiz ND [employer] [facility] 4 14:57:49 Date Recorded Body height Body mass index (BMI) Body weight Body temperature Heart rate Respiratory rate Oxygen saturation Oxygen saturation in Arterial blood by Pulse oximetry Systolic blood pressure Diastolic blood pressure Provider Name and Address Organization Details Last Updated DateTime 4 157.48 cm 23.1 kg/m2 90363.9 9 g 98.1 [degF] 78 /min 16 /min 98 % 98 % 128 mm[Hg] 60 mm[Hg] Zia [employer] [facility] 4 14:05:57 Date Recorded Body height Body mass index (BMI) Body weight Body temperature Heart rate Respiratory rate Oxygen saturation Oxygen saturation in Arterial blood by Pulse oximetry Systolic blood pressure Diastolic blood pressure Provider Name and Address Organization Details Last Updated DateTime 4 157.48 cm 24.3 kg/m2 83282.1 4 g 98.6 [degF] 82 /min 16 /min 98 % 98 % 132 mm[Hg] 72 mm[Hg] Zia Ruiz ND [employer] [facility] [employer] 4 11:31:48 Date Recorded Body height Body mass index (BMI) Body weight Body temperature Oxygen saturation Oxygen saturation in Arterial blood by Pulse oximetry Heart rate Systolic blood pressure Diastolic blood pressure Provider Name and Address Organization Details Last Updated DateTime 5 157.48 cm 27.7 kg/m2 06556.2 g 97.1 [degF] 98 % 98 % 81 /min 130 mm[Hg] 68 mm[Hg] Jackie Zamarripa RN [facility] [employer] 5 15:13:56 Social History Question Answer Notes LastModified by Organizat ion Details LastModified Time Tobacco Smoking Status Current Every Day Smoker Not Available [facility] 01/14/2023 06:06:54 Do You Have An Advance Directive? No [id number] Information not available 01/14/2023 What Is Your Level Of Alcohol Consumption? Moderate Tuesdays /Fridays 5 Beers [email or web address] Information not available 12/14/2024 How Many Years Have You Consumed Alcohol? 45 [email or web address] Information not available 12/14/2024 Is Blood Transfusion Acceptable In An Emergency? Yes Information not available 06/30/2023 What Is Your Level Of Caffeine Consumption? Moderate Diet MtEstrellita Abelw Two (16 Oz. Bottles) [email or web address] Information not available 12/14/2024 What Is Your Code Status? Full Code [id number] Information not available 01/14/2023 In The 14 Days Before Symptom Onset, Have You Had Close Contact With A Laboratory-confi rmed COVID-19 While That Case Was Ill? No MIGRATION.[id number] Information not available 01/14/2023 In The 14 Days Before Symptom Onset, Have You Had Close Contact With A Person Who Is Under Investigation For COVID-19 While That Person Was Ill? No MIGRATION.71527 45033 Information not available 01/14/2023 Are You Currently Employed? No Information not available 06/30/2023 What Type Of Diet Are You Following? REGULAR MIGRATION.[id number] Information not available 01/14/2023 Which Illicit Or Recreational Drugs Have You Used? Marijuana [email or web address] Information not available 12/14/2024 What Is Your Occupation? Disabled MIGRATION.43090 95619 Information not available 01/14/2023 Have There Been Any Changes To Your Family Or Social Situation? No MIGRATION.13435 99362 Information not available 01/14/2023 How Many Years Have You Used Illicit Or Recreational Drugs? 45 [email or web address] Information not available 12/14/2024 Do You Use Insect Repellent Routinely? No MIGRATION.21380 89376 Information not available 01/14/2023 Where Do You Live? [facility] MIGRATION.51314 74970 Information not available 01/14/2023 Do You Have A Medical Power Of Die Hardener? No MIGRATION.60621 11152 Information not available 01/14/2023 What Is Your Current Pack Years? [email or web address] MIGRATION.64579 30440 Information not available 01/14/2023 Do You Have Any Pets? No Information not available 06/30/2023 What Is Your Relationship Status? Single MIGRATION.11998 21036 Information not available 01/14/2023 Do You Use Your Seat Belt Or Car Seat Routinely? Yes Information not available 06/30/2023 Do You Have Smoke And Carbon Monoxide Detectors In Your Home? Yes MIGRATION.75071 34924 Information not available 01/14/2023 At What Age Did You Start Smoking Tobacco? 12 MIGRATION.04870 25826 Information not available 01/14/2023 Are You Passively Exposed To Smoke? No MIGRATION.48161 47684 Information not available 01/14/2023 Are There Any Smokers In Your House? Yes MIGRATION.66331 15553 Information not available 01/14/2023 How Much Tobacco Do You Smoke? 1 PPD MIGRATION.33096 82859 Information not available 01/14/2023 Do You Participate In Social Media? Yes Information not available 06/30/2023 Do You Feel Stressed (tense, Restless, Nervous, Or Anxious, Or Unable To Sleep At Night)? [id number] Information not available 06/30/2023 Do You Use Any Illicit Or Recreational Drugs? Yes [email or web address] Information not available 12/14/2024 Do You Use Sunscreen Routinely? No MIGRATION.32149 57179 Information not available 01/14/2023 Has Tobacco Cessation Counseling Been Provided? No MIGRATION.69131 97000 Information not available 01/14/2023 How Many Years Have You Smoked Tobacco? 48 MIGRATION.73710 49955 Information not available 01/14/2023 Have You Recently Traveled Abroad? No MIGRATION.09299 64576 Information not available 01/14/2023 Have You Used IV Drugs? No [email or web address] Information not available 12/14/2024 Do You Have Any Dietary Restrictions? No MIGRATION.02038 38386 Information not available 01/14/2023 Do You Or Have You Ever Used Any Other Forms Of Tobacco Or Nicotine? No MIGRATION.99995 04062 Information not available 01/14/2023 How Many Days In The Past Year Have You Consumed 4 Or More Drinks? 96 [email or web address] Information not available 12/14/2024 Sex: Unknown Functional Status Question Answer Note LastModified by Organizat ion Details LastModified Time What is your exercise level? Occasional [id number] Information not available 01/14/2023 Mental Status None recorded. Family History Relationship Description Onset Age of this Age Resolved Age Notes LastModified by Organization Details LastModified Time Father Diabetes mellitus [id number] Not available 01/14/2023 06:08:23 Mother Hypertensive disorder [id number] Not available 01/14/2023 06:08:23 Notes:arthritis on mom's vicki e of family Medical History Condition Response DIABETES, TYPE Y ANXIETY DISORDER Y DEPRESSION (INCLUDING POST ) Y SURGERY Y HIGH CHOLESTEROL / HYPERLIPIDEMIA Y Gynecological History Statement/Question Response If Post Menopausal, Age at Menopause 48 Date of Last Mammogram 03/05/2023 Date of Last Pap Smear Date of Last Colonoscopy 11/16/2015 Most Recent Mammogram 03/05/2023 Most Recent Bone Density 12/12/2022 Obstetrics History GPAL:G 0 P 0 0 0 0 Immunizations Vaccine Type Date Status Note Provider Nam e and Address Organization Details Recorded Time Pneumococcal conjugate PCV20, polysaccharide BIF680 conjugate, adjuvant, PF 5 completed Jackie Zamarripa RN null, [place] [facility] 12/14/2024 16:10:38 influenza, unspecified formulation 2 completed Not Available [employer] 01/14/2023 06:20:10 SARS-COV-2 (COVID-19) vaccine, UNSPECIFIED 2 completed Not Available [facility] 01/14/2023 06:20:10 SARS-COV-2 (COVID-19) vaccine, UNSPECIFIED 2 completed Not Available [facility] 01/14/2023 06:20:10 COVID-19, mRNA, LNP-S, PF, 100 mcg/0.5mL dose or 50 mcg/0.25mL dose 1 completed Not Available [facility] 01/14/2023 06:20:10 COVID-19, mRNA, LNP-S, PF, 100 mcg/0.5mL dose or 50 mcg/0.25mL dose 1 completed Not Available [facility] 01/14/2023 06:20:10 Influenza, split virus, quadrivalent, preservative 0 completed Not Available [facility] 01/14/2023 06:20:10 Influenza, split virus, quadrivalent, preservative 9 completed Not Available [facility] 01/14/2023 06:20:10 Influenza, split virus, quadrivalent, preservative 7 completed Not Available [facility] 01/14/2023 06:20:11 Influenza, split virus, trivalent, preservative 6 completed Not Available [facility] 01/14/2023 06:20:11 Influenza, split virus, trivalent, preservative 5 completed Not Available [facility] 01/14/2023 06:20:11 Influenza, split virus, trivalent, preservative 4 completed Not Available [facility] 01/14/2023 06:20:11 Influenza, split virus, trivalent, preservative 3 completed Not Available [facility] 01/14/2023 06:20:11 Tdap 2 completed Not Available [facility] 01/14/2023 06:20:11 pneumococcal polysaccharide PPV23 0 completed Not Available [facility] 01/14/2023 06:20:11 Past Encounters Encounter ID Performer Location Encounter Start Date Encounter Closed Date Diagnosis/Indication Diagnosis SNOMED-CT Code Diagnosis ICD10 Code Diagnosis Note [id number] [address] [place] [address] 07/10/2021 00:00:00 07/10/2021 12:08:02 [id number] [facility] [address] [place] [address] 01/14/2022 00:00:00 01/14/2022 11:50:38 [id number] [facility] [address] [place] [address] [place] [address] 06/16/2022 00:00:00 06/16/2022 14:29:[id number] [address] 10/29/2022 00:00:00 10/29/2022 15:28:[id number] [address] 12/30/2022 00:00:00 12/30/2022 10:46:23 [id number] Lavinia Vila NP [address] [address] 06/30/2023 09:57:27 06/30/2023 10:44:41 Depressive disorder 96104612 F32.A bupropion SR 200 mg po bidCitalop rafy 40 mg po daily. Anxiety 72190463 F41.9 Citalopram 40 mg po daily.Moth er passed on 05/2018. Hyperlipidemia 48448019 E78.5 Atorvastat in 10 mg po nightly. Type 2 tana betes mellitus without complication 224770213 E11.9 metformin 500 mg po bid Smoker 26860762 F17.200 Cessation encouraged and recommende d. [id number] Ezequiel Richmond MD [address] [address] 12/28/2023 14:46:52 12/28/2023 15:23:12 Depressive disorder 27209756 F32.A Anxiety disorder F41.9 Hyperlipidemia 49207711 E78.5 Prediabetes 325916875 R7 3.03 Screening mammography 24 439657 Z12.31 Osteopenia 193336321 M85 .80 Cigarette smoker 9111580 7 F17.051 [id number] Ezequiel Richmond MD [address] [address] 05/11/2024 13:57:44 05/11/2024 14:22:41 Depressive disorder 42127101 F32.A Anxiety disorder F41.9 Hyperlipidemia 59295757 E78.5 Prediabetes 111653635 R7 3.03 Osteopenia 479992712 M85 .80 Cigarette smoker 7949178 7 F17.824 [id number] Ezequiel Richmond MD [address] [address] 08/30/2024 11:24:44 08/30/2024 11:55:52 Depressive disorder 61544794 F32.A Anxiety disorder F41.9 Hyperlipidemia 87019262 E78.5 Prediabetes 904127535 R7 3.03 Osteopenia 436530485 M85 .80 Cigarette smoker 9245960 7 F17.471 [id number] Ezequiel Richmond MD [address] [address] 12/14/2024 14:56:35 12/14/2024 15:39:53 Prediabetes 384172943 R73.03 Hyperlipidemia 81878345 E78.5 Depressive disorder 3548 9007 F32.A Anxiety disorder 06 F41.9 Cigarette smoker 3910453 7 F17.210 Osteopenia 100994986 M85 .80 Screening mammography 24 673373 Z12.31 Active or passive immunization 636425587 Z23 Adult heal th examination 068556690 Z00.00 Health Concerns Section Related Observation LastModified by Organization Detai ls LastModified Time None Recorded Concern Status LastModified by Organization Details LastModified Time None Recorded Advance Directives Directive N: Payers Encounter Date Sequence Insurance Name Policy Number Policy Farris Covered Member ID Farris Member ID Guarantor Name 06/30/2023 1 [facility] - [employer]ARP - MEDICARE COMPLETE POS (MEDICARE REPLACEMENT HMO) [id number] Karyn [id number] Karyn Ulrich 12/28/2023 1 [facility] - [employer]ARP - MEDICARE COMPLETE POS (MEDICARE REPLACEMENT HMO) [id number] Karyn Ulrich [id number] Karyn Ulrich 05/11/2024 1 [facility] - [employer]ARP - MEDICARE COMPLETE POS (MEDICARE REPLACEMENT HMO) [id number] Karyn Ulrich [id number] Karyn Ulrich 08/30/2024 1 [facility] - [employer]ARP - MEDICARE COMPLETE POS (MEDICARE REPLACEMENT HMO) [id number] Karyn Ulrich [id number] Karyn Ulrich 12/14/2024 1 [facility] - [employer]ARP - MEDICARE COMPLETE POS (MEDICARE REPLACEMENT HMO) [id number] Karyn Ulrich [id number] Karyn Ulrich Notes Date Note Type Note Provider Name and Address Organization Details Recorded Time 06/30/2023 text/html Here for check up. Discussed labs in office today for A1C, bmp, lipid, hepatic.Sugar fasting in the morning- not generally checked.No dizziness.States eating out a lot to fast foods. States she doesn't like to cook. Over the weekend had [employer] fried chicken, burgers, taco adams. Lavinia Vila NP [address], [place], [address], [employer] 06/30/2023 10:35:20 12/28/2023 text/html Pt is here for f/u on her meds and chronic conditions. Doing overall well with her current meds. Denies any problem with meds. Denies any other concern. Doing overall well with her mood. Denies any mood swings/SI/HI. Ezequiel Richmond MD [address], [address], [place], [address], [employer] 12/28/2023 15:16:08 05/11/2024 text/html Pt is here for f/u on her meds and chronic conditions. Doing overall well with her current meds. Denies any problem with meds. Denies any other concern. Doing overall well with her mood. Denies any mood swings/SI/HI. Ezequiel Richmond MD [address], [address], [place], [address], [employer] 05/11/2024 14:19:54 08/30/2024 text/html Pt is here for f/u on her meds and chronic conditions. Doing overall well with her current meds. Denies any problem with meds. Denies any other concern. Doing overall well with her mood. Denies any mood swings/SI/HI. Still smoking +++, about 1 ppd. Ezequiel Richmond MD [address], [address], [place], [address], [employer] 08/30/2024 11:47:06 12/14/2024 text/html Pt is here for her annual exam. Doing overall well with her current meds. Denies any problem with meds. Denies any other concern. Doing overall well with her mood. Denies any mood swings/SI/HI. Still smoking +++, about 0.75-1 ppd. Ezequiel Richmond MD [address], [address], [place], [address], [employer] 12/14/2024 15:50:05 OBGyn Episode No OBEpisode recorded.
--- OUTSIDE RECORDS SUMMARY | 2024-12-23 14:23 | XMS_ITS | Patient Health Record ---
Author Organization [facility] Address [address] [place] [address] Care Team Providers Care Poll Clerk Name Role Phone Pradeep Rosenthal Primary Care Provider [phone] Reason For Referral No Information Immunizations Vaccine Route Administration Date Status Comme nts COVID-19 Moderna 1ST IM Intramuscular 01/24/2021 Administered EUA date 0. Screening reviewed and consent signed. Patient tolerated well. COVID-19 Moderna 1ST IM Intramuscular 02/21/2021 Administered Plan Of Treatment No Information Insurance Providers Payer Name Payer Address Payer Phone Subscriber Number Group Number Insured Name Patient Relationship to Insured Coverage Start Date Coverage End Date [facility] [address] [place] [address] [id number] Karyn Ulrich Self - patient is the insured 1
== END 2024-12-23 14:16 | disposition home or self-care (01) ==
PROVIDERS: PCP Family Medicine; Visit Provider Family Medicine
DX: Z12.2 Encounter for screening for malignant neoplasm of respiratory organs (principal); F17.210 Nicotine dependence, cigarettes, uncomplicated
CPT/HCPCS: 71271

== ENCOUNTER 2025-05-11 14:17 | Outpatient (CLI) | payer MEDICARE, SELFPAY ==
--- NOTE | ~2025-05-11 | MM_ITS ---
EXAMINATION: MM screening mikki BI w macie HISTORY: Screening mammogram TECHNIQUE: Craniocaudal and mediolateral oblique 3-D tomosynthesis images were obtained and synthetic 2-D images were generated. CAD analysis was submitted and interpreted. COMPARISON: 04/04/2024, 03/05/2023, 02/27/2022, 09/17/2020 BREAST PARENCHYMAL COMPOSITION:Dense: The breasts are extremely dense, which lowers the sensitivity o f mammography. FINDINGS: No suspicious mass, calcification, or architectural distortion are identified in either thor ast to suggest malignancy. There has been no suspicious interval change. IMPRESSION: No mammographic evidence of malignancy. Recommend routine screening mammography in one year. BI-RADS Category 1: Negative Reviewed, dictated and finalized at location .
== END 2025-05-11 14:18 | disposition home or self-care (01) ==
LOC: ANHIMG 14:20
PROVIDERS: PCP Family Medicine; Visit Provider Family Medicine
DX: Z12.31 Encounter for screening mammogram for malignant neoplasm of breast (principal)
CPT/HCPCS: 77063; 77067